=== PATIENT | female | born 1950 | race Caucasian/White ===

== ENCOUNTER 2020-03-26 14:10 | Emergency (ER) | payer OTHER ==
--- NOTE | 2020-03-26 15:08 | RAD REPORT ---
EXAM DESCRIPTION: CT - [id number] - 03/26/2020 2:46 pm CLINICAL HISTORY: PAIN, fall, head and face trauma, headache, neck pain COMPARISON: No comparisons TECHNIQUE: Axial 5 mm thick images of the head were obtained. Axial 2 mm thick images of the cervic al spine were obtained with sagittal and coronal reconstruction images generated and reviewed. All CT scans are performed using dose optimization technique as appropriate and may include automated exposure control or mA/KV adjustment according to patient size. FINDINGS: No intracranial hemorrhage, mass, edema or acute intracranial finding. No suspicion for ac sycuan infarction. No extra-axial fluid collections. Atrophy and chronic ischemic changes are minimal. M astoid air cells are clear. Sinuses, facial bones and orbits are separately detailed. Cervical body height and alignment are normal. C6-7 disc space narrowing present. Facet joint degener ative changes are minimal with no foraminal stenosis. No central spinal stenosis. No fracture or acut e bony abnormality. Central canal detail is inherently limited. No paraspinal mass or hematoma. IMPRESSION: Negative CT head examination for acute or significant finding. Facial bones, orbits and sinuses are separately detailed. Negative CT cervical spine examination for acute or significant finding.
--- NOTE | 2020-03-26 15:10 | RAD REPORT ---
EXAM DESCRIPTION: CT - Facial Bones W/ Mpr - 03/26/2020 2:46 pm CLINICAL HISTORY: Fall, facial trauma COMPARISON: CT head same date TECHNIQUE: Axial 2 millimeter thick images of the facial bones were obtained with sagittal and coron al reconstruction imaging. All CT scans are performed using dose optimization technique as appropriate and may include automated exposure control or mA/KV adjustment according to patient size. FINDINGS: Small right frontal scalp hematoma is present. Underlying bone and sinus are intact. Minim al right periorbital contusion or edema changes are present. No globe or orbital content injury seen. Paranasal sinuses are clear. No facial bone fracture is present. Condyles of the mandible are normal ly positioned. No foreign body in the soft tissues. IMPRESSION: Small right frontal scalp hematoma.
--- NOTE | 2020-03-26 15:24 | RAD REPORT ---
EXAM DESCRIPTION: RAD - Hand Right 3 View - 03/26/2020 2:59 pm CLINICAL HISTORY: PAIN COMPARISON: No comparisons FINDINGS: No fracture is identified. There is no dislocation or periosteal reaction noted. IP joint space narrowing present without erosion or significant spurring change. No air or foreign body in th e soft tissues. IMPRESSION: No fracture identifiable. Joint degenerative change is present.
--- NOTE | 2020-03-26 15:25 | RAD REPORT ---
EXAM DESCRIPTION: RAD - Knee Right 3 View - 03/26/2020 2:59 pm CLINICAL HISTORY: PAIN COMPARISON: No comparisonsNone. FINDINGS: No fracture, dislocation or periosteal reaction.No joint effusion seen. No joint space marcelina rowing. Minimal patella and medial compartment marginal spurring. No foreign body or other soft tissu e abnormality. IMPRESSION: Negative right knee for acute bone or joint finding. Clinical concerns for internal derangement or occult bony injury could be further assessed with MR im aging.
--- NOTE | 2020-03-26 15:37 | ER ---
Nurse's Notes [facility] Name: Kelsey Hill Age: 69 yrs Sex: Female : 1950 Arrival Date: 03/26/2020 Time: 14:12 Bed 4 Private MD: Diagnosis: Fall on same level from slipping, tripping and stumbling;Abrasion of knee;Abrasion of right little finger;Superficial injury of head Presentation: 03/26 14:21 Chief complaint: Patient states: Walking and suddenly fell and hit R head on concrete ll1 30 min [employer]. Takes plavix. Right pinky pain with abrasion. R knee swelling/abrasion noted. No LOC. Coronavirus screen: Client denies travel out of the [place] in the last 14 days. At this time, the client does not indicate any symptoms associated with coronavirus-19. Ebola Screen: Patient denies travel to an Ebola-affected area in the 21 days before illness onset. Initial Sepsis Screen: Does the patient meet any 2 criteria? No. Patient's initial sepsis screen is negative. Does the patient have a suspected source of infection? No. Patient's initial sepsis screen is negative. Risk Assessment: Do you want to hurt yourself or someone else? Patient reports no desire to harm self or others. Onset of symptoms was March 26, 2020. 14:21 Method Of Arrival: Wheelchair ll1 14:21 Acuity: JAQUI 2 ll1 Trauma Activation: Alert Physician: ED Physician; Name: ; Notified At: ; Arrived At: Physician: General Surgeon; Name: ; Notified At: ; Arrived At: Physician: Radiology; Name: ; Notified At: ; Arrived At: Physician: Respiratory; Name: ; Notified At: ; Arrived At: Physician: Lab; Name: ; Notified At: ; Arrived At: Historical: - Allergies: 14:25 PENICILLINS; ll1 - PMHx: 14:25 Hypertension; High Cholesterol; ll1 - Immunization history:: Flu vaccine is up to date. - Social history:: Smoking status: Patient denies any tobacco usage or history of. Screenin:39 Abuse screen: Denies threats or abuse. Nutritional screening: No deficits noted. em Tuberculosis screening: No symptoms or risk factors identified. Fall Risk None identified. Vital Signs: 14:21 BP 143 / 82; Pulse 64; Resp 18; Temp 97.3; Pulse Ox 94% ; Weight 87.54 kg; Height 5 ft. ll1 2 in. (157.48 cm); Pain 10/10; 14:21 Body Mass Index 35.30 (87.54 kg, 157.48 cm) ll1 ED Course: 14:12 Patient arrived in ED. ds1 14:24 Triage completed. ll1 14:25 Arm band placed on. ll1 14:28 [facility] Gamble [facility]NP-C [facility]. kb 14:28 Ernie Miguel MD is Attending Physician. kb 14:38 Umang Castellano, RN is Primary Nurse. em 14:39 Patient has correct armband on for positive identification. Bed in low position. Call em light in reach. 14:46 CT Head C Spine In Process Unspecified. EDMS 14:46 CT Facial Bones W/O Con In Process Unspecified. EDMS 14:59 Knee Right 3 View XRAY In Process Unspecified. EDMS 14:59 Hand Right 3 View XRAY In Process Unspecified. EDMS Administered Medications: No medications were administered Outcome: 15:36 Discharge ordered by MD. kb 16:16 Patient left the ED. hb Signatures: Dispatcher [employer] EDMS Rebecca Gamble FNP-C DIRECTOR OF ESTATE-Umang Conti, RN DISHA Mariah Webber ds1 Ashia Garvey RN RN Sandra Parson RN RN ll1
--- NOTE | 2020-03-26 15:37 | EDPHYS ---
Physician Documentation [facility] Name: Kelsey Hill Age: 69 yrs Sex: Female : 1950 Arrival Date: 03/26/2020 Time: 14:12 Bed 4 Private MD: ED Physician Ernie Miguel HPI: 03/26 15:44 This 69 yrs old Female presents to ER via Wheelchair with complaints of Fall kb Injury, Head Injury-Adult. 15:44 Details of fall: The patient fell from an upright position, while walking. Onset: The kb symptoms/episode began/occurred just prior to arrival. Associated injuries: The patient sustained injury to the head, hematoma, pain, right knee, abrasion, painful injury, right little finger, abrasion, decreased range of motion, painful injury. Severity of symptoms: At their worst the symptoms were moderate, in the emergency department the symptoms are unchanged. The patient has not experienced similar symptoms in the past. The patient has not recently seen a physician. Pt reports she walked through a doorway and fell. States her right forehead took most of the weight. Has pain to head, right knee and right 5th digit on right hand. Denies LOC, dizziness, shortness of breath, AMS. . Historical: - Allergies: 14:25 PENICILLINS; ll1 - PMHx: 14:25 Hypertension; High Cholesterol; ll1 - Immunization history:: Flu vaccine is up to date. - Social history:: Smoking status: Patient denies any tobacco usage or history of. ROS: 15:41 Constitutional: Negative for fever, chills, and weight loss, Cardiovascular: Negative kb for chest pain, palpitations, and edema, Respiratory: Negative for shortness of breath, cough, wheezing, and pleuritic chest pain, Abdomen/GI: Negative for abdominal pain, nausea, vomiting, diarrhea, and constipation, Back: Negative for injury and pain, Neuro: Negative for headache, weakness, numbness, tingling, and seizure. 15:41 MS/extremity: Positive for decreased range of motion, pain, of the right little finger and right knee, hematoma to right forehead, mild ecchymosis above and below right eye. Exam: 15:42 Constitutional: This is a well developed, well nourished patient who is awake, alert, kb and in no acute distress. Cardiovascular: Regular rate and rhythm with a normal S1 and S2. No gallops, murmurs, or rubs. Normal PMI, no JVD. No pulse deficits. Respiratory: Lungs have equal breath sounds bilaterally, clear to auscultation and percussion. No rales, rhonchi or wheezes noted. No increased work of breathing, no retractions or nasal flaring. Abdomen/GI: Soft, non-tender, with normal bowel sounds. No distension or tympany. No guarding or rebound. No evidence of tenderness throughout. Neuro: Awake and alert, GCS 15, oriented to person, place, time, and situation. Cranial nerves II-XII grossly intact. Motor strength 5/5 in all extremities. Sensory grossly intact. Cerebellar exam normal. Normal gait. 15:42 Head/face: Noted is no obvious of injury or deformity except ecchymosis, that is mild, of the right eye, hematoma, that is mild, of the right side of forehead. 15:42 Musculoskeletal/extremity: Extremities: grossly normal except: noted in the right knee and right little finger: abrasion, decreased ROM, pain, ROM: limited active range of motion due to pain, in the right knee and right little finger, Circulation is intact in all extremities. Sensation intact. 15:42 Skin: injury, abrasion(s), small abrasion noted, of the right knee and right little finger. Vital Signs: 14:21 BP 143 / 82; Pulse 64; Resp 18; Temp 97.3; Pulse Ox 94% ; Weight 87.54 kg; Height 5 ft. ll1 2 in. (157.48 cm); Pain 10/10; 14:21 Body Mass Index 35.30 (87.54 kg, 157.48 cm) ll1 MDM: 14:29 Patient medically screened. kb 15:41 Data reviewed: vital signs, nurses notes. Data interpreted: Pulse oximetry: on room air kb is 94 %. Interpretation: normal. Counseling: I had a detailed discussion with the patient and/or guardian regarding: the historical points, exam findings, and any diagnostic results supporting the discharge/admit diagnosis, radiology results, the need for outpatient follow up, a family practitioner, to return to the emergency department if symptoms worsen or persist or if there are any questions or concerns that arise at home. 03/26 14:29 Order name: CT Head C Spine; Complete Time: 15:10 kb 03/26 14:32 Order name: CT Facial Bones W/O Con; Complete Time: 15:12 kb 03/26 14:32 Order name: Knee Right 3 View XRAY; Complete Time: 15:27 kb 03/26 14:32 Order name: Hand Right 3 View XRAY; Complete Time: 15:27 kb Administered Medications: No medications were administered Disposition: 17:07 Co-signature as Attending Physician, Ernie Miguel MD. ma2 Disposition: 03/26/20 15:36 Discharged to Home. Impression: Fall on same level from slipping, tripping and stumbling, Abrasion of knee, Abrasion of right little finger, Superficial injury of head. - Condition is Stable. - Discharge Instructions: Hematoma, [id number], Musculoskeletal Pain, Abrasion, [id number], Head Injury, Adult, [id number]. - Prescriptions for Tramadol 50 mg Oral Tablet - take 1 tablet by ORAL route every 8 hours as needed; 12 tablet. - Medication Reconciliation Form, Thank You Letter, Antibiotic Education, Prescription Opioid Use form. - Follow up: Emergency Department; When: As needed; Reason: Worsening of condition. Follow up: Private Physician; When: 2 - 3 days; Reason: Recheck today's complaints, Continuance of care, Re-evaluation by your physician. Signatures: Dispatcher [employer] Rebecca Martins, COMMUTER TRAIN OPERATOR-C COMMUTER TRAIN OPERATOR-CkAshia Quezada RN Ernie Allen MD MD ma2 Sandar Parson RN RN ll1 Corrections: (The following items were deleted from the chart) 16:16 15:36 03/26/2020 15:36 Discharged to Home. Impression: Fall on same level from slipping, tripping and stumbling; Abrasion of knee; Abrasion of right little finger; Superficial injury of head. Condition is Stable. Forms are Medication Reconciliation Form, Thank You Letter, Antibiotic Education, Prescription Opioid Use. Follow up: Emergency Department; When: As needed; Reason: Worsening of condition. Follow up: Private Physician; When: 2 - 3 days; Reason: Recheck today's complaints, Continuance of care, Re-evaluation by your physician. kb
[2020-03-26] MEDS ORDERED: TETANUS & DIPHTHERIA TOX,ADULT 0.5 ML VIAL ONE (16:14)
[2020-03-26] MEDS ORDERED: HYDROCODONE/APAP 5/325 MG TAB ONE (16:14)
[2020-03-26 16:25] VITALS: BP 143/82; TEMP 97.3; O2SAT 94
== END 2020-03-26 16:16 | disposition home or self-care (01) ==
LOC: ER 14:10
DX: S00.90XA Unspecified superficial injury of unspecified part of head, initial encounter (principal); S80.211A Abrasion, right knee, initial encounter; S60.416A Abrasion of right little finger, initial encounter; W01.198A Fall on same level from slipping, tripping and stumbling with subsequent striking against other object, initial encounter; Y93.9 Activity, unspecified; Y92.9 Unspecified place or not applicable; Z23 Encounter for immunization; Z88.0 Allergy status to penicillin; I10 Essential (primary) hypertension
CPT/HCPCS: 70450; 70486; 72125; 76377; 90714; 99282; G0390